=== PATIENT | male | born 1945 | race Caucasian/White ===

== ENCOUNTER 2016-11-26 14:30 | Emergency (ER) | payer OTHER ==
[~2016-11-26] VITALS: Ht 167.6 cm; Wt 100.0 kg
[2016-11-26 14:33] VITALS: Ht 167.6 cm; Wt 100.0 kg
[2016-11-26] MEDS ORDERED: KETOROLAC 30 MG INJ IM STA (15:55)
[2016-11-26] MEDS ORDERED: HYDROCODONE/APAP (5/325) TAB PO ONE (16:00)
--- NOTE | 2016-11-26 16:21 | RADRPT ---
PROCEDURE: Ultrasound of the right lower extremity venous system. CLINICAL INDICATION: Right leg pain and swelling, deep venous thrombosis TECHNIQUE: Pascal scale with and without compression, color doppler, spectral doppler of the venous system of the right lower extremity was performed. Venous augmentation maneuvers were utilized. COMPARISON: No prior studies are available for comparison. FINDINGS: Common femoral vein: Patent. Femoral vein: Patent. Popliteal vein: Patent. Calf veins: Patent. No soft tissue abnormalities are identified. IMPRESSION: No evidence of a deep vein thrombosis within the right lower extremity. RPTAT: AADD .Tod Gutierrez MD, MD Date Time Electronically viewed and signed by .Tod Gutierrez MD, on 11/26/2016 16:21 .B/
[2016-11-26 17:15] LABS: INR 1.08; PT RATIO 1.1
[2016-11-26 17:16] LABS: PARTIAL THROMBOPLASTIN TIME 29.5 Sec (25.0-35.0)
[2016-11-26] MEDS ORDERED: morphine 10 MG INJ IM ONE (18:30)
[2016-11-26] MEDS ORDERED: NAPR-685 PO (18:34)
[2016-11-26] MEDS ORDERED: HYDR-906 PO (18:34)
[2016-11-26 19:07] VITALS: BP 143/76; PULSE 77; RESP 18
--- NOTE | 2016-12-07 04:24 | ERD ---
DATE OF SERVICE: 11/26/2016 HISTORY OF PRESENT ILLNESS: A 71-year-old male comes for pain and perfuse swelling of his left lower leg. His doctor suggested that he come to emergency room to rule out DVT. He has had no fevers or chills. He can still fully ambulatory. He has no history of DVTs. He has no other symptoms, no shortness of breath. Has not had any trauma to the area. REVIEW OF SYSTEMS: A 12 point review of systems performed and negative except as in HPI. PAST MEDICAL HISTORY: Hypertension. PAST SURGICAL HISTORY: Unknown. FAMILY HISTORY: Noncontributory. SOCIAL HISTORY: Denies tobacco and alcohol, and other drugs. PHYSICAL EXAMINATION: VITAL SIGNS: Temperature 98.3, pulse 74, respiratory rate 18, blood pressure 148/64, and pulse ox 98 percent on room air. GENERAL: No acute distress. HEENT: Normocephalic, atraumatic. CARDIAC: Regular rate and rhythm. No murmurs. LUNGS: Clear to auscultation bilaterally. No distress. EXTREMITIES: No obvious visualized swelling of the right lower extremity. The patient does report some pain on massage of calf. Distal pulses are intact bilateral lower extremities with both dorsalis pedis and posterior tibial pulses. Both feet are the same level of warmth without any . There is no erythema. No signs of infection. NEUROLOGIC: Alert and oriented times 3. No focal deficits. SKIN: No rashes or other lesions. DIAGNOSTIC DATA: Right lower extremity vascular ultrasound interpretation: The patient has compressible veins at all sites. There is no DVT. No other abnormalities seen. MEDICAL DECISION MAKING/EMERGENCY DEPARTMENT COURSE: The patient was given morphine, Toradol, and a [place] tab, which did decrease his leg pain. The patient's coagulopathy studies within normal limits. At this point the patient is negative for a DVT. It is unknown why he has the calf pain, but there are no signs of infection whatsoever, so I doubt cellulitis, necrotizing fasciitis, no history of trauma, no significant swelling. Possible muscle strain. I am having him followup with his primary care doctor and discharging him Naproxen and [place] for pain. The patient has no joint pain. I see no reason for additional imaging as there are no signs of bony injury. Return precautions are advised. Right lower extremity ultrasound interpretation, no DVT or other soft tissue abnormality. DISCHARGE DIAGNOSIS: Right lower leg pain. DISPOSITION: Home in stable condition. Dictated By: Rajeev Schmidt DO /[email or web address] /Document#: [id number]
== END 2016-11-26 19:00 | disposition home or self-care (01) ==
LOC: E/R 14:30
DX: M79.661 Pain in right lower leg (principal); I10 Essential (primary) hypertension
CPT/HCPCS: 85610; 85730; 93971; 96372; J1885; J2270; Z7502; Z7610